=== PATIENT | male | born 1990 ===

== ENCOUNTER → 2021-01-01 12:38 | Outpatient (CLI) | payer OTHER, SELFPAY ==
--- NOTE | 2021-01-01 12:40 | DI.US.S_ITS ---
PROCEDURE: US SCROTUM INDICATIONS: SCROTAL PAIN RIGHT > LEFT TECHNIQUE: Real-time scanning was performed of the scrotum and testicles, with image documentation. Color and pulse Doppler interrogation was performed of both testicles. COMPARISON: None. FINDINGS: Right: Testicle is normal in size at 4.1 x 2.7 x 2.0 cm, and homogenous in echotexture. Epididymis is normal in overall size and morphology. No hydrocele or varicoceles. Overlying scrotal skin is normal in thickness. The epididymal head has a simple 2 mm cyst. Left: Testicle is normal in size at 4.1 x 2.7 x 2.0 cm, and homogeneous in echotexture. Epididymis is normal in overall size and morphology. No hydrocele or varicoceles. Overlying scrotal skin is normal in thickness. The epididymal head has a simple 9 x 8 x 5 mm cyst. Doppler: Color and pulse Doppler demonstrate normal and symmetric arterial flow in both testicles. IMPRESSION: 1. No acute ultrasound abnormality of the testicles. 2. Simple epididymal head cysts. Dictated by: Hilario Shoemaker M.D. on 01/01/2021 at 15:52 Approved by: Hilario Shoemaker M.D. on 01/01/2021 at 15:55
== END ==
PROVIDERS: PCP Family Medicine; Referring Provider Family Medicine; Visit Provider Family Medicine
DX: N50.82 Scrotal pain (principal); N50.3 Cyst of epididymis
CPT/HCPCS: 76870